=== PATIENT | female | born 1980 | race African-American/Black ===

== ENCOUNTER 2017-02-25 11:39 | Emergency (ER) | payer MEDICAID ==
[~2017-02-25 11:39] MED LIST: ADVIL200 M1 PO; ALBUTEROL SULF8.5 G1 IH; AMOXICILLIN500 M PO; AMOXIL875 MG PO; ANTIBIOTIC; CEFDINIR300 M1 PO; CIPRO250 MG PO; CODEINE; DEPO-PROVER400 MG/ML IM; EFFEXOR XR75 MG; ELIMITE60 GM TP; FIORICET TABLET1 TAB; FLAGYL500 MG PO; FLINTSTONES M100 MCG PO; GUAIFENESIN; LOVENOX SC; NO HOME MEDS; NORCO 5/325 TAB1 TAB PO; NORCO 5/3251 TAB PO; PREDNISONE10 M1 PO; PREDNISONE20 MG PO; PRENATAL1 EACH PO; PRENATAL1 TAB; PROMETHAZINE/CODEINE; SYMBICORT 160-4.6 GM IH; TESSALON200 MG PO; TYLENOL W/CODEI1 TA PO; TYLENOL500 MG PO; VENTOLIN HFA18 GM INH; VITAMIN D50000 UNIT PO; Z-PACK; ZANTAC150 M1 PO; ZITHROMAX250MG Z-PAK PO
[2017-02-25] MEDS ORDERED: PRENATAL VITAM1 EA12 PO (12:05)
== END 2017-02-25 14:33 ==
LOC: EDMED 11:39
DX: Z34.91 Encounter for supervision of normal pregnancy, unspecified, first trimester (principal); Z37.9 Outcome of delivery, unspecified